=== PATIENT | female | born 1960 | race African-American/Black ===

== ENCOUNTER → 2017-07-18 | Outpatient (CLI) | payer BC ==
--- NOTE | 2017-07-18 15:07 | RADIOLOGY REPORT (SQ) ---
EXAM DESCRIPTION: HAND LEFT 3 VIEWS COMPLETED DATE/TIME: 07/18/2017 2:57 pm REASON FOR STUDY: PAIN IN LEFT HAND M79.642 PAIN IN LEFT HAND COMPARISON: None. EXAM PARAMETERS: NUMBER OF VIEWS: Three views. TECHNIQUE: AP, lateral and oblique radiographic images acquired of the left hand. LIMITATIONS: None. FINDINGS: MINERALIZATION: Normal. BONES: No acute fracture or dislocation. No worrisome bone lesions. No significant osteophytes. JOINTS: No erosions. No bello-articular osteopenia. No chondrocalcinosis. SOFT TISSUES: No swelling. No calcifications. OTHER: No other significant finding. IMPRESSION: NEGATIVE STUDY OF THE LEFT HAND. NO ACUTE POST-TRAUMATIC CHANGES. NO EXPLANATION FOR FRANSISCA N. TECHNICAL DOCUMENTATION: JOB ID: [id number] [employer]- All Rights Reserved
== END ==
LOC: OD 14:30
PROVIDERS: ATTEND Internal Medicine
DX: M79.642 Pain in left hand (principal)

== ENCOUNTER → 2020-02-14 | Outpatient (CLI) | payer OTHER ==
--- NOTE | 2020-02-14 10:41 | RADIOLOGY REPORT (SQ) ---
EXAM DESCRIPTION: KNEE BILAT AP UPRIGHT IMAGES COMPLETED DATE/TIME: 02/14/2020 10:22 am REASON FOR STUDY: DYSPNEA; CHRONIC LINA KNEE PAIN I10 ESSENTIAL (PRIMARY) HYPERTENSION E78.5 HYPERL IPIDEMIA, UNSPECIFIED E55.9 VITAMIN D DEFICIENCY, UNSPECIFIED COMPARISON: None. NUMBER OF VIEWS: One view. TECHNIQUE: AP standing bilateral knees. LIMITATIONS: None. FINDINGS: MINERALIZATION: Normal. RIGHT KNEE BONES: No acute fracture. No worrisome bone lesions. MEDIAL COMPARTMENT: No significant osteophytes. No joint space narrowing. No chondrocalcinosis. PATELLOFEMORAL COMPARTMENT: No significant osteophytes. No joint space narrowing. No chondrocalc inosis. LEFT KNEE BONES: No acute fracture. No worrisome bone lesions. MEDIAL COMPARTMENT: No significant osteophytes. No joint space narrowing. No chondrocalcinosis. PATELLOFEMORAL COMPARTMENT: No significant osteophytes. No joint space narrowing. No chondrocalc inosis. IMPRESSION: NEGATIVE STUDY OF THE STANDING RIGHT AND LEFT KNEES. NO SIGNIFICANT JOINT SPACE NARROWIN G OR OTHER SIGNS OF ARTHRITIS. TECHNICAL DOCUMENTATION: JOB ID: [id number] 2010 [employer]- All Rights Reserved Reading location - IP/workstation name: [email or web address]
--- NOTE | 2020-02-14 10:42 | RADIOLOGY REPORT (SQ) ---
EXAM DESCRIPTION: CHEST PA/LATERAL IMAGES COMPLETED DATE/TIME: 02/14/2020 10:21 am REASON FOR STUDY: DYSPNEA; CHRONIC LINA KNEE PAIN COMPARISON: None. EXAM PARAMETERS: NUMBER OF VIEWS: two views TECHNIQUE: Digital Frontal and Lateral radiographic views of the chest acquired. RADIATION DOSE: NA LIMITATIONS: none FINDINGS: LUNGS AND PLEURA: No opacities, masses or pneumothorax. No pleural effusion. MEDIASTINUM AND HILAR STRUCTURES: No masses or contour abnormalities. HEART AND VASCULAR STRUCTURES: Heart normal size. No evidence for failure. BONES: No acute findings. HARDWARE: None in the chest. OTHER: No other significant finding. IMPRESSION: NO SIGNIFICANT RADIOGRAPHIC FINDING IN THE CHEST. TECHNICAL DOCUMENTATION: JOB ID: [id number] 2010 [employer]- All Rights Reserved Reading location - IP/workstation name: [email or web address]
[2020-02-14 11:06] LABS: ABSOLUTE EOSINOPHILS # (AUTO) 0.1 10^3/uL (0.0-0.6); ABSOLUTE LYMPHOCYTES (AUTO) 1.1 10^3/uL (0.5-4.7); ABSOLUTE MONOCYTES (AUTO) 0.3 10^3/uL (0.1-1.4); BASOPHILS % (AUTO) 0.9 % (0-2); EOSINOPHILS % (AUTO) 2.6 % (0-6); HEMATOCRIT 39.2 % (36.0-47.0); HEMOGLOBIN 13.3 g/dL (12.0-15.5); LYMPHOCYTES % (AUTO) 24.4 % (13-45); MEAN CORPUSCULAR HEMOGLOBIN 30.5 pg (27.0-33.4); MEAN CORPUSCULAR VOLUME 90 fl (80-97); MONOCYTES % (AUTO) 6.4 % (3-13); PLATELET COUNT 272 10^3/uL (150-450); RED BLOOD COUNT 4.38 10^6/uL (3.72-5.28); RED CELL DISTRIBUTION WIDTH 13.8 % (11.5-14.0); SEGMENTED NEUTROPHILS % (AUTO) 65.7 % (42-78); TOTAL CELLS COUNTED % (AUTO) 100 %; WHITE BLOOD COUNT 4.5 10^3/uL (4.0-10.5)
[2020-02-14 11:17] LABS: ALBUMIN 4.5 g/dL (3.5-5.0); ALKALINE PHOSPHATASE 117 U/L (38-126); ANION GAP 6 (5-19); ASPARTATE AMINO TRANSFERASE 24 U/L (14-36); BILIRUBIN,TOTAL 0.5 mg/dL (0.2-1.3); BLOOD UREA NITROGEN 15 mg/dL (7-20); CALCIUM 9.9 mg/dL (8.4-10.2); CARBON DIOXIDE 29 mmol/L (22-30); CHLORIDE 104 mmol/L (98-107); CHOLESTEROL 253.17 mg/dL (0-200); GLUCOSE 96 mg/dL (75-110); POTASSIUM 4.5 mmol/L (3.6-5.0); TOTAL PROTEIN 7.6 g/dL (6.3-8.2); TRIGLYCERIDES 151 mg/dL (<150); URIC ACID 7.3 mg/dL (2.5-7.5)
[2020-02-14 11:27] LABS: DIRECT LDL 151 mg/dL (<100)
[2020-02-14 11:37] LABS: VLDL CHOLESTEROL 30.2 mg/dL (10-31)
== END ==
LOC: CCC 09:56
PROVIDERS: ATTEND Internal Medicine
DX: M25.561 Pain in right knee (principal); M25.562 Pain in left knee; M54.5 Low back pain; R06.09 Other forms of dyspnea; I10 Essential (primary) hypertension; E78.5 Hyperlipidemia, unspecified; E55.9 Vitamin D deficiency, unspecified; Z87.39 Personal history of other diseases of the musculoskeletal system and connective tissue
CPT/HCPCS: 36415; 71046; 73565; 80053; 80061; 82306; 83036; 84443; 84550; 85025

== ENCOUNTER → 2020-09-13 | Outpatient (CLI) | payer BC ==
--- NOTE | 2020-09-13 09:45 | WOMENS IMAGING REPORT ---
EXAM DESCRIPTION: BILAT SCREENING MAMMO W/CAD IMAGES COMPLETED DATE/TIME: 09/13/2020 9:07 am REASON FOR STUDY: Z12.31 ENCOUNTER FOR SCREENING MAMMOGRAM FOR MALIGNANT NEOPLASM OF BREAST Z12.31 ENCNTR SCREEN MAMMOGRAM FOR MALIGNANT NEOPLASM OF [place]ERARDO COMPARISON: Priors dating back to 2012 EXAM PARAMETERS: Standard craniocaudal and mediolateral oblique views of each breast recorded using digital acquisition. Read with the assistance of CAD. .[facility] - [employer] Version 9.2 LIMITATIONS: None. FINDINGS: No suspicious masses, suspicious calcifications or architectural distortion. No areas of c oncern. IMPRESSION: NEGATIVE MAMMOGRAM. BIRADS 1 BREAST DENSITY: b. There are scattered areas of fibroglandular density. BIRAD: ASSESSMENT: 1 NEGATIVE RECOMMENDATION: ROUTINE SCREENING COMMENT: The patient has been notified of the results by letter per MQSA requirements. Additional no tification policies are in place for contacting patient with suspicious or incomplete findings. Quality ID #[id number]: The [employer] recommends an annual screening mammogram for women aged 40 years or over. This facility utilizes a reminder system to ensure that all patients receive reminder letters, and/or direct phone calls for appointments. This includes reminders for routine scr eening mammograms, diagnostic mammograms, or other Breast Imaging Interventions when appropriate. Th is patient will be placed in the appropriate reminder system. TECHNICAL DOCUMENTATION: FINDING NUMBER: (1) ASSESSMENT: (1) JOB ID: [id number] 2010 [employer]- All Rights Reserved Reading location - IP/workstation name: [email or web address]
== END ==
LOC: WI 08:45
PROVIDERS: ATTEND Internal Medicine
DX: Z12.31 Encounter for screening mammogram for malignant neoplasm of breast (principal)
CPT/HCPCS: 77067